=== PATIENT | male | born 1950 | race Caucasian/White ===

== ENCOUNTER 2024-08-20 12:42 | Emergency (ER) | payer OTHER ==
[2024-08-20 12:53] VITALS: TEMP 97.9; BMI 23.7
[2024-08-20] MEDS ORDERED: LACTATED RINGERS SOLUTION 1000 ML INFUS.BAG IV ONE (13:59)
[2024-08-20 15:03] LABS: EOS % 1.4 % (0-4.5); HEMATOCRIT 39.7 % (35.4-49); HEMOGLOBIN 13.7 GM/dL (11.7-16.9); LYMPH % 24.6 % (8-40); MCH 31.6 pg (25.7-33.7); MCHC 34.5 g/dl (32.0-35.9); MEAN CELL VOLUME 91.5 fl (80-96); MEAN PLT VOLUME 8.9 fl (7.5-11.1); MONO % 7.7 % (3.8-10.2); NEUT % 65.3 % (42.8-82.8); PLATELET COUNT 273 10^3/uL (134-434); RBC 4.34 M/mm3 (4.00-5.60); RDW 12.4 % (11.9-15.9); WHITE BLOOD COUNT 9.7 K/mm3 (4.0-10.0)
[2024-08-20 15:10] LABS: INR 0.96 (0.83-1.09); PROTHROMBIN TIME (PATIENT) 11.1 SEC (9.7-13.0)
[2024-08-20] MEDS: LACTATED RINGERS SOLUTION 1000 ML INFUS.BAG IV ONE (15:12)
[2024-08-20 15:40] LABS: POTASSIUM 3.5 mmol/L (3.5-5.1)
[2024-08-20 15:43] LABS: ALBUMIN 3.5 g/dl (3.4-5.0); MAGNESIUM 1.6 mg/dL (1.8-2.4)
[2024-08-20 15:46] LABS: CREATININE 1.3 mg/dL (0.55-1.3)
[2024-08-20 15:48] LABS: BILIRUBIN,TOTAL 0.6 mg/dL (0.2-1); TOT PROT 6.7 g/dl (6.4-8.2)
[2024-08-20] MEDS ORDERED: MAGNESIUM SULFATE IN WATER 2 GM/50 ML IVPB IVPB ONE ×2 (15:49→16:32)
[2024-08-20 17:06] VITALS: BP 160/104; PULSE 115; RESP 18
== END 2024-08-20 17:14 | disposition home or self-care (01) ==
LOC: JER 12:42
DX: R06.02 Shortness of breath (principal); R05.9 Cough, unspecified; R00.0 Tachycardia, unspecified; F41.9 Anxiety disorder, unspecified; Z20.822 Contact with and (suspected) exposure to COVID-19
CPT/HCPCS: 0241U-QW; 36415; 71275-TC; 80053; 83735; 83880; 84443; 84484; 85025; 85610; 85730; 93005; 93010; 99291; Q9967